=== PATIENT | female | born 1950 | race Two or more races ===

== ENCOUNTER 2018-03-20 12:25 | Inpatient (IN) | payer MEDICARE, OTHER ==
[~2018-03-20] VITALS: Ht 152.4 cm; Wt 56.7 kg
--- NOTE | 2018-03-20 12:35 | NUR ---
GPS: NURSING: ADMISSION NOTES: RECEIVED PATIENT FROM ER VIA [facility] WITH 5150 HOLD FOR GD, PATIENT AMBULATORY AND SPEAKS FARSI, PATIENT IS CONFUSED AND UNABLE TO ANSWER QUESTION DUE TO CONFUSION AND DISORIENTATION. NO SOB NOTED , NO C/O PAIN OR DISCOMFORT NOTED AT THIS TIME. PATIENT PACING AROUND THE HALLWAY AND ABLE TO REDIRECT THE PATIENT TO HER ROOM. WILL CONTINUE TO MONITOR.
[2018-03-20] MEDS ORDERED: RISP1TAB7 PO (12:36)
[2018-03-20 13:25] LABS: BASOPHILS % (AUTO) 0.4 % (0.0-2.0); EOSINOPHILS % (AUTO) 0.8 % (0.0-7.0); HEMATOCRIT 39.2 % (31.2-41.9); HEMOGLOBIN 13.2 g/dL (10.9-14.3); LYMPHOCYTES # (AUTO) 1.3 K/uL (20.0-40.0); LYMPHOCYTES % (AUTO) 24.4 % (20.5-51.5); MEAN CORPUSCULAR HEMOGLOBIN 31.5 uug (24.7-32.8); MEAN CORPUSCULAR HGB CONC 34 g/dL (32.3-35.6); MEAN CORPUSCULAR VOLUME 93.4 fL (75.5-95.3); MONOCYTES # (AUTO) 0.7 K/uL (2.0-10.0); MONOCYTES % (AUTO) 12.3 % (0.0-11.0); NEUTROPHILS # (AUTO) 3.3 K/uL (1.8-8.9); NEUTROPHILS % (AUTO) 62.1 % (38.5-71.5); PLATELET COUNT (AUTO) 191 K/uL (179-408); WHITE BLOOD COUNT (AUTO) 5.3 K/uL (3.8-11.8)
[2018-03-20 13:32] LABS: CARBON DIOXIDE 28 mmol/L (21-32); CHLORIDE 108 mmol/L (98-107); CREATININE 0.8 mg/dL (0.6-1.3); GLUCOSE 108 mg/dL (74-106); POTASSIUM 3.6 mmol/L (3.5-5.1); UREA NITROGEN, BLOOD 7 mg/dL (7-18)
[2018-03-20 13:37] LABS: ETHANOL < 3 MG/DL (0-0)
[2018-03-20 13:38] LABS: ACETAMINOPHEN < 2.0 ug/mL (10-30); ALANINE AMINOTRANSFERASE 35 U/L (14-59); ALKALINE PHOSPHATASE 114 U/L (50-136); ASPARTATE AMINOTRANSFERASE 31 U/L (15-37); BILIRUBIN,DIRECT 0.1 mg/dL (0.0-0.2); BILIRUBIN,TOTAL 0.3 mg/dL (0.2-1.0); TOTAL PROTEIN, SERUM 7.9 g/dL (6.4-8.2)
[2018-03-20 13:46] LABS: THYROID STIMULATING HORMONE 1.402 mIU/mL (0.358-3.740)
[2018-03-20 13:47] LABS: *BILIRUBIN,URIN NEGATIVE (NEGATIVE); *BLOOD, URINE NEGATIVE (NEGATIVE); *CLARITY,URINE CLEAR (CLEAR); *COLOR,URINE YELLOW (YELLOW); *KETONES,URINE NEGATIVE (NEGATIVE); *UROBILINOGEN,URINE 0.2 E.U./dl (NORMAL); LEUKOCYTE ESTERASE ,URINE NEGATIVE (NEGATIVE); NITRITE, URINE NEGATIVE (NEGATIVE); UGLUCOSE NEGATIVE (NEGATIVE)
[2018-03-20 13:51] LABS: BACTERIA,URINE FEW /HPF (NONE SEEN); RBC,URINE NONE SEEN /HPF (0-3); SQUAMOUS EPITHELIAL CELL,UR FEW /HPF (NONE SEEN); WBC,URINE NONE SEEN /HPF (0-3)
[2018-03-20 13:57] LABS: *AMPHETAMINE, URINE NEGATIVE (NEGATIVE); *BARBITURATE, URINE NEGATIVE (NEGATIVE); *CANNABINOID, URINE NEGATIVE (NEGATIVE); *COCCAINE, URINE NEGATIVE (NEGATIVE); *OPIATE, URINE NEGATIVE (NEGATIVE); *PHENCYCLIDINE SCREEN,URINE NEGATIVE (NEGATIVE)
[2018-03-20] MEDS ORDERED: LORAZEPAM 2 MG/1 ML VIAL ONE (13:57)
--- NOTE | 2018-03-20 13:59 | NUR ---
pt agitatd and escalating inspite of comfort measures and reorientation. pt responding to internal stimuli, all of a sudde started to yell followed by sobbing. pt hypertalking that does not make sense. pt talking in farsi.
[2018-03-20] MEDS ORDERED: LORAZEPAM 2 MG/1 ML VIAL IM ONE (14:00)
--- NOTE | 2018-03-20 14:49 | NUR ---
Pt. admitted to GPS, under care of Dr. MACK Belongs List completed
[2018-03-20 16:40] VITALS: BP 147/55
[2018-03-20 20:58] VITALS: BP 137/54
[2018-03-20] MEDS ORDERED: ACETAMINOPHEN 650 MG SUPP.RECT RC PRN (21:00)
[2018-03-20] MEDS ORDERED: LORAZEPAM 0.5 MG TABLET PO PRN (21:00)
[2018-03-20] MEDS ORDERED: TEMAZEPAM 7.5 MG CAPSULE PO PRN (21:00)
[2018-03-21 07:30] VITALS: BP 144/46
[2018-03-21] MEDS ORDERED: HALOPERIDOL LACTATE 5 MG/1 ML VIAL IM ONE (07:30)
[2018-03-21] MEDS ORDERED: LORAZEPAM 2 MG/1 ML VIAL IM ONE (07:30)
--- NOTE | 2018-03-21 12:30 | NUR ---
Initial Discharge Plan: Patient is a 67 year old female who currently lives in an apartment [[address] [place] [address] [address]; [place] [address]]and has [facility] caregivers [[facility] Adelita ; Sandhya Moreno ] come Saturday thru Saturday from 9:00am to 5:00pm. Patient states she would like to return to her apartment when ready. mop worker unable to speak with patient son, Roger Garcia [[phone]], at this time and will continue effort to try and reach him. mop worker has left voicemail with patient caregiver, [facility], and is awaiting call back. mop worker will continue to collaborate with patient, caregivers, patient son, and MD on a safe and proper discharge.
[2018-03-21 15:35] VITALS: BP 131/46
[2018-03-21 20:38] VITALS: BP 113/46
[2018-03-22] MEDS: risperiDONE 1 MG TABLET PO SCH ×4 (02:40→20:56)
[2018-03-22 07:30] VITALS: BP 132/53
[2018-03-22] MEDS: CARBAMAZEPINE 200 MG TABLET PO SCH ×3 (08:35→21:00)
[2018-03-22 16:00] VITALS: BP 123/55
--- NOTE | 2018-03-22 19:55 | NUR ---
RECEIVED PATIENT IN HER ROOM IN BED. SHE IS NOTED AWAKE A/O X 3 ABLE TO AMBULATE WITH STEADY GAIT AND ABLE TO MAKE HER NEEDS KNOWN. PATIENT NOTED WITH LOW MOOD, BLUNTED AFFECT, GUARDED. HOWEVER, SHE DENIED SI/HI/VH/AH. WISHING TO GO HOME SOON. V/S STABLE AT THIS TIME. PATIENT WAS REASSURED FOR HER SAFETY. WILL CONTINUE TO MONITOR.
[2018-03-22 20:03] VITALS: BP 121/50
--- NOTE | 2018-03-22 22:00 | NUR ---
PATIENT REFUSED TEGRETOL QHS. SHE STATED THAT TEGRETOL MAKES HER SICK. HOWEVER, SHE TOOK HER RISPERDAL 2MG PO QHS. SHE WAS EXPLAINED THE BENEFITS VS SIDE EFFECTS OF TEGRETOL BUT CONTINUE REFUSING. PATIENT WAS REASSURED FOR HER SAFETY.
[2018-03-23 08:05] VITALS: BP 144/53
[2018-03-23] MEDS: CARBAMAZEPINE 200 MG TABLET PO SCH ×2 (09:00→21:00)
[2018-03-23] MEDS: risperiDONE 1 MG TABLET PO SCH ×2 (09:23→21:00)
[2018-03-23 10:06] LABS: HEPATITIS A AB, IgM Negative (Negative)
[2018-03-23] MEDS ORDERED: BENZTROPINE MESYLATE 0.5 MG TABLET PO PRN (13:00)
[2018-03-23 16:51] VITALS: BP 158/47
[2018-03-23 20:37] VITALS: BP 137/49
[2018-03-24 07:30] VITALS: BP 132/56
[2018-03-24] MEDS: CARBAMAZEPINE 200 MG TABLET PO SCH ×2 (08:42→20:04)
[2018-03-24] MEDS: risperiDONE 1 MG TABLET PO SCH ×2 (08:42→20:03)
--- NOTE | 2018-03-24 11:34 | NUR ---
Firearms Report: SOURAV completed and submitted [employer] Firearms Report for 5250 GD certification.
[2018-03-24 16:00] VITALS: BP 113/50
--- NOTE | 2018-03-24 16:41 | NUR ---
GROUP NOTE: GOAL Patient will actively participate in the group discussion of the day or listen respectfully to other peers responses. INTERVENTION Social Work Coal Loader invited patient to participate in a group discussion held from 2:00-2:45 pm in the activities room. Social Work Coal Loader facilitated a group discussion regarding the types of love languages and ways in which they demonstrate their care for others. SW Coal Loader redirected pt. when needed, but at times was unsuccessful. RESPONSE Patient was open to participating in group discussion. Patient was able to share what others would say about her best characteristic. She stated that she shows others she cares by making sacrifices. The pt.s mood was happy with full range affect. The pt. interrupted her peers with comments that were unrelated to the discussion, however was cooperative. PLAN Patient will be invited to attend the next group discussion.
[2018-03-24 20:36] VITALS: BP 137/49
[2018-03-25 07:30] VITALS: BP 138/69
[2018-03-25] MEDS: CARBAMAZEPINE 200 MG TABLET PO SCH ×2 (09:55→20:33)
[2018-03-25] MEDS: risperiDONE 1 MG TABLET PO SCH ×2 (09:55→20:33)
[2018-03-25 16:55] VITALS: BP 122/54
[2018-03-25 20:00] VITALS: BP 109/40
[2018-03-26 07:30] VITALS: BP 139/41
[2018-03-26] MEDS: risperiDONE 1 MG TABLET PO SCH ×2 (08:48→20:51)
[2018-03-26] MEDS: CARBAMAZEPINE 200 MG TABLET PO SCH ×2 (08:48→20:51)
--- NOTE | 2018-03-26 14:31 | NUR ---
Lining Scrubber Discharge Planning Note: SW placed call to patient's Therapist, Radha Chicas ([phone]) to discuss pt prognosis and discharge planning. Per Radha, she sees the patient on a weekly basis and that the patient "goes through a pattern" approximately every other month of refusing to take her medications and is then hospitalized. Per Radha, the patient was just assigned a new Psychiatrist, Dr. Marquise Villegas [[address] [facility], [address] [place] [address]; ] who will be managing the patient's medications. Radha asked that Continuation of Care packet be faxed to his office when the patient is discharged. SOURAV will continue to follow-up to ensure a safe and proper discharge.
[2018-03-26] MEDS: MAG HYDROX/AL HYDROX/SIMETH 30 ML LIQUID UDC PO PRN (14:34)
--- NOTE | 2018-03-26 15:53 | NUR ---
PROCESS GROUP NOTE: Patients were asked to discuss their thoughts on what knowledge or "life lessons" they would pass on to a younger generation. Subjective: "Leave everything to the Lord" Objective: Patient sat in group calmly and was actively participating. Patient made good eye contact with peers. Assessment: supervisor park workers would re-direct patient frequently as patient got off topic easily. Patient compliant with redirection. Plan: supervisor park workers will continue to encourage group attendance as scheduled. supervisor park workers will continue to provide encouragement and support during MHU admission
[2018-03-26 16:00] VITALS: BP 149/59
--- NOTE | 2018-03-26 16:55 | NUR ---
received patient awake in bed AOx3, self care ambulatory, patient able to make her needs known, denies any pain and discomfort compliant to medication, patient denies of any delusion continue to monitor
[2018-03-26 20:02] VITALS: BP 156/57
[2018-03-26] MEDS: ONDANSETRON HCL 4 MG TABLET PO PRN (20:51)
--- NOTE | 2018-03-26 20:55 | NUR ---
RECEIVED PATIENT IN HER ROOM IN BED. SHE IS NOTED AWAKE A/O 2. SHE IS ABLE TO AMBULATE WITH STEADY GAIT AND ABLE TO MAKE HER NEEDS KNOWN. PATIENT CONTINUE NEEDY GUARDED, MANIPULATIVE AND INTRUSIVE. POOR INSIGHT AND JUDGMENT NOTED TO THE REASON FOR HIS ADMISSION TO MHU. SHE ALSO STATED THAT SHE HAS BEEN FEELING NAUSEA AND SHE ALSO STATED THAT SHE REFUSED LUNCH AND DINNER. V/S NOTED STABLE. SPRING LAGUERRE. ACNP WAS NOTIFY AND NEW ORDER WAS OBTAINED TO ADMINISTER ZOFRAN 4MG PO Q6HPRN FOR NAUSEA AND VOMITING. ORDER NOTED AND CARRIED OUT. PATIENT CONTINUE COMPLIANT WITH MEDICATION REGIMENT. SAFETY WAS EMPHASIS. WILL CONTINUE TO MONITOR CLOSELY.
--- NOTE | 2018-03-26 22:00 | NUR ---
PATIENT DENIES NAUSEA AND EMESIS. SHE IS NOTED RESTING COMFORTABLY IN HER IN IN BED. HOB IS ELEVATED, SHE WAS REASSURED FOR HER SAFETY, WILL CONTINUE TO MONITOR.
--- NOTE | 2018-03-27 02:56 | NUR ---
AT APPROX 0243 A NOISE WAS HEARD COMING FROM ROOM 145. THIS RN CIRCULATING IMMEDIATELY MADE HER WAY INTO ROOM 145 AND SAW THIS PATIENT ON THE FLOOR NEXT TO HER BED BY THE HEADBOARD. SHE WAS HELPED BACK TO HER BED THEN TO THE BATHROOM WHERE SHE VOIDED. UPON INTERVIEW PATIENT STATED THAT SHE WAS LOOKING FOR HER SOCKS WHEN SHE FELL BACKWARDS HITTING THE BACK OF HER HEAD AGAINST THE WALL. PATIENT DENIES HITTING ANY OTHER PARTS OF HER BODY. UPON BODY ASSESSMENT, NO REDNESS, NO BRUISING, NO SWELLING, NO BLEEDING WAS NOTED ON HER SCALP AND FACE. NO OTHER VISIBLE INJURES WERE APPRECIATED AT THIS TIME. PATIENT ABLE TO PERFORMED FULL ROM ON ALL FOUR EXTREMITIES. NO CHANGES IN LOC. PATIENT REMAINS A/O X 3. V/S SUPINE: B/P 107/52MMHG, PULSE 87BPM SPO2 97% PULSE 18 BREATHS/MIN. SHE STATED THAT, "THE BACK OF MY HEAD IS SORE, BRING ME A BAG OF ICE". SHE REFUSED ORTHOSTATIC V/S AND REFUSED TO HAVE HER TEMPERATURE TAKEN. MD PHARMACY OPERATIONS SPECIALIST WAS PAGED AT APPROX 0248. AWAITING FOR A CALL BACK. PROOFER WAS NOTIFY OF PATIENT'S FALL. WILL CONTINUE TO MONITOR AND NEURO CHECKS.
--- NOTE | 2018-03-27 03:50 | NUR ---
V/S 126/61MMHG. PULSE 80. PATIENT CONTINUE A/O X 3 WITH NO CHANGES IN LOC. WILL CONTINUE TO MONITOR
--- NOTE | 2018-03-27 04:35 | NUR ---
AT APPROX 0345, RECEIVED A CALL BACK FROM BHUPINDER HANKS CNP RE: FALL. OBTAINED A TELEPHONE ORDER TO DO A CT SCAN OF THE HEAD WITHOUT CONTRAST AND ICE PRN. ORDER WAS NOTED AND CARRIED OUT. PT LEFT THE UNIT WITH CIRILO ROLON AT APPROX [address] SCAN AND SHE IS NOW BACK INTO THE UNIT. PATIENT CONTINUE A/O X 3 WITH NO CHANGES IN LOC. WILL CONTINUE TO MONITOR.
[2018-03-27 05:36] VITALS: BP 122/50
--- NOTE | 2018-03-27 06:12 | NUR ---
RECEIVED RESULTS OF CT SCAN OF THE BRAIN WITHOUT CONTRAST: IMPRESSION: 1. Mild generalized cerebral volume loss and nonspecific chronic microvascular ischemic disease. 2. No evidence of intracranial masses hemorrhages or midline shift. PATIENT AWAKE A/O X 2 NO CHANGES IN LOC. V/S STABLE. DENIES PAIN. DR MACK WAS PAGED. AWAITING A CALL BACK. WILL CONTINUE TO MONITOR.
--- NOTE | 2018-03-27 07:01 | NUR ---
ATTEMPTED TO NOTIFY PATIENT JODI WALLACE AT [phone], OTHER PHONE NUMBERS WERE PROVIDED; HOWEVER, NO ANSWER ON ANY OF THE ONES LISTED IN HER ADMISSION PAPERS . WILL TRY LATER THIS MORNING.
[2018-03-27 07:30] VITALS: BP 121/41
[2018-03-27] MEDS: risperiDONE 1 MG TABLET PO SCH ×2 (08:11→20:39)
[2018-03-27] MEDS: CARBAMAZEPINE 200 MG TABLET PO SCH ×2 (08:11→20:39)
[2018-03-27] MEDS: ONDANSETRON HCL 4 MG TABLET PO PRN (08:11)
--- NOTE | 2018-03-27 15:00 | NUR ---
Gps/Pole Maker- Patient's son Radha called, wants to talk to Psychiatrist, requesting not to give anymore mediciations that making her Mon(Patient) more confused, and gets dizzy. Son was to be called at . Infomred results of head CT was neg. Sitter remains with patient, safety reviewed and continue to emphasized.
[2018-03-27 16:00] VITALS: BP 122/53
[2018-03-27] MEDS: MAGNESIUM HYDROXIDE 30 ML LIQUID UDC PO PRN (16:52)
--- NOTE | 2018-03-27 17:48 | NUR ---
Gps/Supervisor Dairy Sanitation- Less nausea, encouraged to eat, adequate fluid intake, per RN CLINICAL QUALITY patient moved her bowels on 03/24/18, abdomen soft, passing out gas . Prune juice offered, MOM 30 ml given .Had been cooperative with staff, safety continued to emphasized.
[2018-03-27 20:00] VITALS: BP 123/54
[2018-03-27] MEDS: MAG HYDROX/AL HYDROX/SIMETH 30 ML LIQUID UDC PO PRN (20:40)
--- NOTE | 2018-03-27 21:15 | NUR ---
GPS: patient stated i am not feeling well and my mouth is dry . V/S TAKEN. B/P 141/52 PULSE 70,RESP 20 SAT 95%, TEMP 97.5. cold water given. charge nurse made aware. continue monitoring for safety and pain.
[2018-03-27 21:25] VITALS: BP 141/52
--- NOTE | 2018-03-28 06:00 | NUR ---
GPS: REMAIN CALM AND COOPERATIVE WITH MEDICATIONS AND CARE. SLEPT 7 HRS THROUGH THE NIGHT. TOOK SHOWERED THIS MORNING. KEPT SAFE THROUGH THE NIGHT. 1:1 SITTER @ BEDSIDE FOR SAFETY.NO C/O PAIN OR ANY DISCOMFORT AT THIS TIME.
[2018-03-28 07:41] LABS: BASOPHILS % (AUTO) 0.3 % (0.0-2.0); EOSINOPHILS % (AUTO) 0.9 % (0.0-7.0); HEMATOCRIT 38.3 % (31.2-41.9); HEMOGLOBIN 12.7 g/dL (10.9-14.3); LYMPHOCYTES # (AUTO) 1.4 K/uL (20.0-40.0); LYMPHOCYTES % (AUTO) 33.4 % (20.5-51.5); MEAN CORPUSCULAR HEMOGLOBIN 31.1 uug (24.7-32.8); MEAN CORPUSCULAR HGB CONC 33 g/dL (32.3-35.6); MEAN CORPUSCULAR VOLUME 93.4 fL (75.5-95.3); MONOCYTES # (AUTO) 0.5 K/uL (2.0-10.0); MONOCYTES % (AUTO) 12.9 % (0.0-11.0); NEUTROPHILS # (AUTO) 2.2 K/uL (1.8-8.9); NEUTROPHILS % (AUTO) 52.5 % (38.5-71.5); PLATELET COUNT (AUTO) 164 K/uL (179-408); WHITE BLOOD COUNT (AUTO) 4.1 K/uL (3.8-11.8)
[2018-03-28 07:53] LABS: CREATININE 0.7 mg/dL (0.6-1.3); POTASSIUM 3.9 mmol/L (3.5-5.1)
[2018-03-28 08:00] VITALS: BP 119/41
[2018-03-28] MEDS ORDERED: ACETAMINOPHEN 325 MG TABLET PO PRN (08:30)
[2018-03-28] MEDS: risperiDONE 1 MG TABLET PO SCH ×2 (08:37→20:04)
[2018-03-28] MEDS: CARBAMAZEPINE 200 MG TABLET PO SCH ×2 (08:37→20:04)
--- NOTE | 2018-03-28 11:09 | NUR ---
National Sales Director Discharge Planning: SW called and spoke to pt's [facility] Caregiver, Sandhya ([phone]) to discuss patient prognosis and discharge planning. SW provided opportunity for caregiver to express concern and ventilate feelings. SW confirmed with Sandhya that pt will be able to return home upon discharge, and he was agreeable. Per Sandhya, he will be able to provide transportation for the patient when she is ready for discharge. SW will continue to follow-up to ensure a safe and proper discharge.
[2018-03-28 16:00] VITALS: BP 137/61
[2018-03-28] MEDS: FERROUS SULFATE 325 MG TABEC PO SCH (19:37)
[2018-03-28 20:00] VITALS: BP 137/53
[2018-03-28] MEDS: MAGNESIUM OXIDE 400 MG TABLET PO SCH (20:04)
[2018-03-28] MEDS ORDERED: GABAPENTIN 100 MG CAPSULE PO ONE (22:00)
--- NOTE | 2018-03-29 06:15 | NUR ---
GPS: REMAIN CALM AND COOPERATIVE WITH MEDICATIONS AND CARE. SLEPT 4 HRS THROUGH THE NIGHT. KEPT SAFE THROUGH THE NIGHT. 1:1 SITTER @ BEDSIDE FOR SAFETY. NO C/O PAIN OR ANY DISCOMFORT AT THIS TIME. CONTINUE PLAN OF CARE.
[2018-03-29 07:54] VITALS: BP 130/47
[2018-03-29] MEDS: risperiDONE 1 MG TABLET PO SCH ×2 (08:02→20:50)
[2018-03-29] MEDS: CARBAMAZEPINE 200 MG TABLET PO SCH ×2 (08:02→20:50)
[2018-03-29] MEDS: GABAPENTIN 100 MG CAPSULE PO SCH ×3 (08:02→16:45)
[2018-03-29] MEDS: FERROUS SULFATE 325 MG TABEC PO SCH (08:02)
[2018-03-29 16:49] VITALS: BP 112/50
[2018-03-29] MEDS: MAGNESIUM OXIDE 400 MG TABLET PO SCH (20:48)
[2018-03-29] MEDS: MAGNESIUM HYDROXIDE 30 ML LIQUID UDC PO PRN (21:03)
[2018-03-29] MEDS: MAG HYDROX/AL HYDROX/SIMETH 30 ML LIQUID UDC PO PRN (21:03)
[2018-03-29 22:11] VITALS: BP 139/53
[2018-03-30 08:31] VITALS: BP 102/42
[2018-03-30] MEDS: FERROUS SULFATE 325 MG TABEC PO SCH (08:39)
[2018-03-30] MEDS: CARBAMAZEPINE 200 MG TABLET PO SCH ×2 (08:39→20:07)
[2018-03-30] MEDS: GABAPENTIN 100 MG CAPSULE PO SCH ×3 (08:39→17:02)
[2018-03-30] MEDS: risperiDONE 1 MG TABLET PO SCH ×2 (08:40→20:07)
[2018-03-30 15:15] VITALS: BP 136/50
[2018-03-30 20:07] VITALS: BP 129/50
[2018-03-30] MEDS: MAGNESIUM OXIDE 400 MG TABLET PO SCH (20:07)
[2018-03-31 07:30] VITALS: BP 163/41
[2018-03-31] MEDS: risperiDONE 1 MG TABLET PO SCH ×2 (08:22→20:10)
[2018-03-31] MEDS: FERROUS SULFATE 325 MG TABEC PO SCH (08:23)
[2018-03-31] MEDS: CARBAMAZEPINE 200 MG TABLET PO SCH ×2 (08:23→20:11)
[2018-03-31] MEDS: GABAPENTIN 100 MG CAPSULE PO SCH ×3 (08:23→16:06)
[2018-03-31 15:27] VITALS: BP 118/53
--- NOTE | 2018-03-31 16:58 | NUR ---
GROUP NOTE: GOAL Patient will participate in the group discussion of the day or actively listen to other peers responses. INTERVENTION Social Work Pharmacy Picking Tech invited patient to participate in a group discussion held from 2:00-2:45 pm in the activities room. Social Work Pharmacy Picking Tech facilitated a group discussion regarding patients proudest moments and support systems that helped them accomplish those moments. SW redirected pt. when needed. RESPONSE Patient was receptive to participating in todays group discussion. Patient was pleasant and cooperated throughout group discussion. Patient stated that she is most proud of her Son, who is a professional and has good anju. Patient also expressed that she has felt the support from her congregation family throughout a life cycle transition. Patient interacted with her peer and remained respectful throughout activity. Patient was easily redirected. PLAN Patient will be invited to attend the next group discussion.
--- NOTE | 2018-03-31 18:03 | NUR ---
Patient is alert and oriented x2. Patient was visited by family today during lunch time.Patient is confused and needs repeated orientation. Patient is need and is attention seeking. Patient is able to verbalize needs and needs have been met. Patient agreed to take a bath today and was assisted by the SURVIVAL EQUIPMENT REPAIRER. Patient is compliant with medical treatment and medication administration. Will continue to monitor closely and endorse plan of care to fast food shift supervisor nurse.
[2018-03-31] MEDS: MAGNESIUM OXIDE 400 MG TABLET PO SCH (20:10)
[2018-03-31 22:38] VITALS: BP 119/64
--- NOTE | 2018-03-31 22:41 | NUR ---
Pt requested Restoril for sleep, and when it was brought to her, Pt became argumentative and stated, "I need 2 pills!" It was explained to her that the doctor prescribed 1 seeping pill for her at night, not 2. Pt was unwilling to take just the one pill, and medication was held. payroll manager aware, medication to be wasted.
[2018-04-01 08:14] VITALS: BP 124/49
[2018-04-01] MEDS: FERROUS SULFATE 325 MG TABEC PO SCH (08:31)
[2018-04-01] MEDS: GABAPENTIN 100 MG CAPSULE PO SCH ×3 (08:32→17:24)
[2018-04-01] MEDS: CARBAMAZEPINE 200 MG TABLET PO SCH ×2 (08:32→20:05)
[2018-04-01] MEDS: risperiDONE 1 MG TABLET PO SCH ×2 (08:32→20:05)
[2018-04-01 15:34] VITALS: BP 127/50
[2018-04-01 20:00] VITALS: BP 113/40
[2018-04-01] MEDS: MAGNESIUM OXIDE 400 MG TABLET PO SCH (20:05)
[2018-04-01] MEDS: GABAPENTIN 300 MG CAPSULE PO SCH ×2 (20:05→20:23)
--- NOTE | 2018-04-01 20:30 | NUR ---
Rec'd pt in her room, sitting at edge of bed. A&O x2-3. No s/s of acute distress noted. Seen and examined by Dr. Wallace. Took all due PO meds except for Neurontin. Dr. Wallace had adjusted her Neurontin dosage from Neurontin 200mg PO TID to Neurontin 300mg PO QHS. Per pt, she already rec'd 400mg today and does not want anymore. Per pt she will start the Neurontin 300mg PO tomorrow night as scheduled. Charge nurse aware. Will follow up with MD. All safety precautions in place. Will continue to monitor.
--- NOTE | 2018-04-02 06:32 | NUR ---
Pt in bed aslee. Slept x7.30 hrs during shift. No s/s of acute distress noted. All safety precautions in place. No episode of responding to verbal stimuli during shift. Will endorse to oncoming shift.
[2018-04-02 07:30] VITALS: BP 106/37
[2018-04-02] MEDS: FERROUS SULFATE 325 MG TABEC PO SCH (09:00)
[2018-04-02] MEDS: risperiDONE 1 MG TABLET PO SCH ×2 (09:25→21:22)
[2018-04-02] MEDS: CARBAMAZEPINE 200 MG TABLET PO SCH ×2 (09:28→21:22)
[2018-04-02 16:00] VITALS: BP 137/51
[2018-04-02 20:41] VITALS: BP 128/50
[2018-04-02] MEDS: GABAPENTIN 300 MG CAPSULE PO SCH (21:22)
[2018-04-02] MEDS: MAGNESIUM OXIDE 400 MG TABLET PO SCH (21:22)
--- NOTE | 2018-04-03 03:25 | NUR ---
GPS/NSG Patient first observed awake on unit. Patient is alert and oriented to name, and place. Patient is confused and requires repeated orientation. Patient exhibits attention seeking behavior at times observed to be inappropriate. Patient is able to verbalize needs and needs have been met. Patient is compliant with medical treatment and medication administration. Will continue to monitor closely and follow plan of care.
[2018-04-03 07:30] VITALS: BP 118/44
[2018-04-03] MEDS: FERROUS SULFATE 325 MG TABEC PO SCH (08:33)
[2018-04-03] MEDS: CARBAMAZEPINE 200 MG TABLET PO SCH ×2 (08:33→20:48)
[2018-04-03] MEDS: risperiDONE 1 MG TABLET PO SCH ×2 (08:36→20:49)
--- NOTE | 2018-04-03 13:32 | NUR ---
Gps/Bleacher Sulfite Pulp- Caregiver, verbalized concerns regarding patient , claimed she is still confused, , verbalizing things that does not make sense, patient claimed " they draw blood from his roommate and put coke instead", reassure will discuss w/ SW. and report to Psychiatrist.
[2018-04-03] MEDS: MAG HYDROX/AL HYDROX/SIMETH 30 ML LIQUID UDC PO PRN (13:52)
[2018-04-03 16:00] VITALS: BP 127/40
--- NOTE | 2018-04-03 17:55 | NUR ---
Gps/Milk Driver- Waiting for Caregiver to visit to pm, per SW left message , and waiting for return call, to calrify time of molded goods spot picker , and to confirm that he will provide transportation.
[2018-04-03 20:13] VITALS: BP 113/52
[2018-04-03] MEDS: MAGNESIUM OXIDE 400 MG TABLET PO SCH (20:48)
[2018-04-03] MEDS: GABAPENTIN 300 MG CAPSULE PO SCH (20:48)
[2018-04-04 07:30] VITALS: BP 108/48
[2018-04-04] MEDS: risperiDONE 1 MG TABLET PO SCH (08:24)
[2018-04-04] MEDS: CARBAMAZEPINE 200 MG TABLET PO SCH (08:24)
[2018-04-04] MEDS: FERROUS SULFATE 325 MG TABEC PO SCH (08:24)
--- NOTE | 2018-04-04 12:44 | NUR ---
DC Note: Patient will be discharged back home with her caregiver [[address], [address] [place] [address]; [phone]] via private transportation. Spoke with patients caregiver, Sandhya Moreno ([phone]) who is aware and agreeable with discharge plan. Pt's caregiver, Tracy Ureña ([phone]) will be providing transportation for the patient. Patient is aware and agreeable with discharge plans. Patient will continue to follow-up with her Primary Care Physician Dr. [place]illas [[address] [facility] [address] [facility], [address] [place] [address]; [phone]]. Patient will continue to follow-up with her Psychiatrist, Dr. Marquise Villegas [[address] [place] [address], [phone], [place], [address]; ]. Patient will continue to follow-up with her Therapist, Radha Chicas ([phone]) on , April 10, 2018 @ 1pm in pts home. Patient was given outpatient mental health referrals to [facility] , [facility] , and the National Suicide Prevention Lifeline .
--- NOTE | 2018-04-04 14:06 | NUR ---
PT LEFT UNIT ON W/C ACCOMPANIED BY CIRILO AND ANTHONY, HER CAREGIVER TO PRIVATE VEHICLE. LEFT WITH ALL NOTED BELONGINGS AND PAPERWORK. PT STATES SHE HAS A WALLET, BUT NOTHING IS NOTED ON BELONGINGS SHEET. DENIES PAIN OR DISCOMFORT. ABLE TO VERBALIZE ALL NEEDS. V/S STABLE. IN NO ACUTE DISTRESS.
== END 2018-04-04 14:09 | disposition home or self-care (01) | DRG 885 ==
LOC: ER 12:25 → GPS 14:29
PROVIDERS: ADMIT Psychiatry & Neurology Psychiatry; ATTEND Nurse Practitioner Acute Care
DX: F25.9 Schizoaffective disorder, unspecified (principal); E87.0 Hyperosmolality and hypernatremia; I67.82 Cerebral ischemia; I11.9 Hypertensive heart disease without heart failure; E78.00 Pure hypercholesterolemia, unspecified; Z91.81 History of falling; Z98.890 Other specified postprocedural states
CPT/HCPCS: 36415; 70450; 71045; 71111; 80307; 84443; 85025; 85730; 86705; 86709; 86803; 87806; 93005; A4663; G0480; G0480-TC; J1630; J2060; Q0162

== ENCOUNTER 2018-06-23 18:54 | Inpatient (IN) | payer MEDICARE, OTHER ==
[~2018-06-23] VITALS: Ht 160 cm; Wt 58.1 kg
[2018-06-23] MEDS ORDERED: RISP1TAB27 PO (20:03)
[2018-06-23 20:45] VITALS: BP 147/53
[2018-06-23] MEDS ORDERED: ACETAMINOPHEN 325 MG TABLET PO PRN (20:45)
[2018-06-23] MEDS ORDERED: MAG HYDROX/AL HYDROX/SIMETH 30 ML LIQUID UDC PO PRN (20:45)
[2018-06-23] MEDS ORDERED: MAGNESIUM HYDROXIDE 30 ML LIQUID UDC PO PRN (20:45)
[2018-06-24 07:30] VITALS: BP 112/50
[2018-06-24] MEDS: LORAZEPAM 1 MG TABLET PO PRN (13:05)
[2018-06-24 15:25] VITALS: BP 124/44
[2018-06-24] MEDS: GABAPENTIN 100 MG CAPSULE PO SCH ×2 (18:18→20:58)
[2018-06-24 19:58] VITALS: BP 118/41
[2018-06-24] MEDS: BENZTROPINE MESYLATE 0.5 MG TABLET PO SCH (20:58)
[2018-06-24] MEDS: CARBAMAZEPINE 200 MG TABLET PO SCH (20:59)
[2018-06-24] MEDS: risperiDONE 2 MG TABLET PO SCH (21:05)
[2018-06-25 07:48] LABS: *BILIRUBIN,URIN NEGATIVE (NEGATIVE); *BLOOD, URINE NEGATIVE (NEGATIVE); *CLARITY,URINE CLEAR (CLEAR); *COLOR,URINE YELLOW (YELLOW); *KETONES,URINE NEGATIVE (NEGATIVE); *UROBILINOGEN,URINE 0.2 E.U./dl (NORMAL); LEUKOCYTE ESTERASE ,URINE NEGATIVE (NEGATIVE); NITRITE, URINE NEGATIVE (NEGATIVE); UGLUCOSE NEGATIVE (NEGATIVE)
[2018-06-25 08:07] VITALS: BP 123/52
[2018-06-25] MEDS: GABAPENTIN 100 MG CAPSULE PO SCH ×5 (08:47→20:07)
[2018-06-25] MEDS: CARBAMAZEPINE 200 MG TABLET PO SCH ×3 (08:47→16:31)
[2018-06-25] MEDS: risperiDONE 2 MG TABLET PO SCH ×2 (08:47→20:07)
[2018-06-25] MEDS: BENZTROPINE MESYLATE 0.5 MG TABLET PO SCH ×3 (08:47→20:07)
[2018-06-25 10:28] LABS: BACTERIA,URINE FEW /HPF (NONE SEEN); RBC,URINE NONE SEEN /HPF (0-3); SQUAMOUS EPITHELIAL CELL,UR FEW /HPF (NONE SEEN); WBC,URINE NONE SEEN /HPF (0-3)
[2018-06-25 15:17] VITALS: BP 134/55
[2018-06-25 20:52] VITALS: BP 135/50
[2018-06-25] MEDS: TEMAZEPAM 7.5 MG CAPSULE PO PRN (21:20)
[2018-06-25] MEDS: LORAZEPAM 1 MG TABLET PO PRN (22:49)
[2018-06-26 07:30] VITALS: BP 113/47
[2018-06-26] MEDS: risperiDONE 2 MG TABLET PO SCH ×2 (09:22→20:00)
[2018-06-26] MEDS: BENZTROPINE MESYLATE 0.5 MG TABLET PO SCH ×2 (09:22→20:00)
[2018-06-26] MEDS: GABAPENTIN 100 MG CAPSULE PO SCH (09:22)
[2018-06-26] MEDS: CARBAMAZEPINE 200 MG TABLET PO SCH ×2 (09:22→21:00)
[2018-06-26] MEDS ORDERED: GABAPENTIN 100 MG CAPSULE PO SCH (13:00)
[2018-06-26] MEDS: GABAPENTIN 300 MG CAPSULE PO SCH ×3 (13:09→20:00)
[2018-06-26 16:00] VITALS: BP 116/98
[2018-06-26 20:36] VITALS: BP 121/51
[2018-06-26] MEDS: TEMAZEPAM 7.5 MG CAPSULE PO PRN (21:47)
[2018-06-27 07:30] VITALS: BP 101/50
[2018-06-27] MEDS: BENZTROPINE MESYLATE 0.5 MG TABLET PO SCH ×2 (09:40→20:35)
[2018-06-27] MEDS: risperiDONE 2 MG TABLET PO SCH ×2 (09:40→20:35)
[2018-06-27] MEDS: CARBAMAZEPINE 200 MG TABLET PO SCH ×2 (09:40→20:35)
[2018-06-27] MEDS: GABAPENTIN 300 MG CAPSULE PO SCH ×4 (09:40→20:35)
[2018-06-27 16:00] VITALS: BP 118/47
[2018-06-27 20:26] VITALS: BP 111/54
[2018-06-28 07:30] VITALS: BP 103/46
[2018-06-28] MEDS: risperiDONE 2 MG TABLET PO SCH ×2 (08:53→22:10)
[2018-06-28] MEDS: CARBAMAZEPINE 200 MG TABLET PO SCH ×2 (08:53→21:00)
[2018-06-28] MEDS: BENZTROPINE MESYLATE 0.5 MG TABLET PO SCH ×2 (08:53→22:09)
[2018-06-28] MEDS: GABAPENTIN 300 MG CAPSULE PO SCH ×4 (08:53→22:10)
[2018-06-28 15:30] VITALS: BP 99/45
[2018-06-28 21:54] VITALS: BP 103/43
[2018-06-29 07:30] VITALS: BP_SYST 115; BP_SYST 97; BP_DIAS 52; BP_DIAS 58
[2018-06-29 07:50] LABS: BASOPHILS % (AUTO) 0.3 % (0.0-2.0); EOSINOPHILS # (AUTO) 0.2 K/uL (0.0-0.7); EOSINOPHILS % (AUTO) 3.7 % (0.0-7.0); HEMATOCRIT 34.4 % (31.2-41.9); HEMOGLOBIN 11.7 g/dL (10.9-14.3); LYMPHOCYTES % (AUTO) 21.8 % (20.5-51.5); MEAN CORPUSCULAR HGB CONC 34 g/dL (32.3-35.6); MEAN CORPUSCULAR VOLUME 94.3 fL (75.5-95.3); MONOCYTES # (AUTO) 0.6 K/uL (2.0-10.0); MONOCYTES % (AUTO) 13.9 % (0.0-11.0); NEUTROPHILS # (AUTO) 2.7 K/uL (1.8-8.9); NEUTROPHILS % (AUTO) 60.3 % (38.5-71.5); PLATELET COUNT (AUTO) 157 K/uL (179-408); RED BLOOD CELL COUNT(AUTO) 3.65 MIL/uL (3.63-4.92); WHITE BLOOD COUNT (AUTO) 4.5 K/uL (3.8-11.8)
[2018-06-29 08:19] LABS: THYROID STIMULATING HORMONE 1.051 mIU/mL (0.358-3.740)
[2018-06-29 08:21] LABS: CREATININE 0.8 mg/dL (0.6-1.3); MAGNESIUM 2.2 mg/dL (1.8-2.4); PHOSPHOROUS 3.9 mg/dL (2.5-4.9); POTASSIUM 4.6 mmol/L (3.5-5.1); TOTAL PROTEIN, SERUM 6.2 g/dL (6.4-8.2)
[2018-06-29 08:53] LABS: BILIRUBIN,TOTAL 0.3 mg/dL (0.2-1.0)
[2018-06-29] MEDS: CARBAMAZEPINE 200 MG TABLET PO SCH ×2 (08:53→20:17)
[2018-06-29] MEDS: GABAPENTIN 300 MG CAPSULE PO SCH ×4 (08:53→20:17)
[2018-06-29] MEDS: BENZTROPINE MESYLATE 0.5 MG TABLET PO SCH ×2 (08:53→20:16)
[2018-06-29] MEDS: risperiDONE 2 MG TABLET PO SCH ×2 (08:53→20:17)
[2018-06-29 16:00] VITALS: BP 132/68
[2018-06-29 20:17] VITALS: BP 132/42
[2018-06-30] MEDS: LORAZEPAM 1 MG TABLET PO PRN ×2 (02:40→08:12)
[2018-06-30 07:30] VITALS: BP 101/44
[2018-06-30] MEDS: BENZTROPINE MESYLATE 0.5 MG TABLET PO SCH ×2 (08:33→20:16)
[2018-06-30] MEDS: risperiDONE 2 MG TABLET PO SCH ×2 (08:33→20:15)
[2018-06-30] MEDS: CARBAMAZEPINE 200 MG TABLET PO SCH ×2 (08:33→20:17)
[2018-06-30] MEDS: GABAPENTIN 300 MG CAPSULE PO SCH ×4 (08:33→20:16)
[2018-06-30 16:01] VITALS: BP 115/59
[2018-06-30 20:00] VITALS: BP 120/49
[2018-07-01 07:30] VITALS: BP 108/50
[2018-07-01] MEDS: BENZTROPINE MESYLATE 0.5 MG TABLET PO SCH ×2 (09:00→21:08)
[2018-07-01] MEDS: GABAPENTIN 300 MG CAPSULE PO SCH ×3 (09:00→16:46)
[2018-07-01] MEDS: risperiDONE 2 MG TABLET PO SCH ×3 (09:00→21:08)
[2018-07-01] MEDS: CARBAMAZEPINE 200 MG TABLET PO SCH ×2 (09:00→21:08)
[2018-07-01 15:47] VITALS: BP 123/50
[2018-07-01 20:32] VITALS: BP 104/59
[2018-07-01] MEDS ORDERED: GABAPENTIN 300 MG CAPSULE PO SCH (21:00)
[2018-07-01 21:06] VITALS: BP 124/62
[2018-07-01] MEDS: GABAPENTIN 100 MG CAPSULE PO SCH (21:08)
[2018-07-02 07:30] VITALS: BP 129/46
[2018-07-02] MEDS: CARBAMAZEPINE 200 MG TABLET PO SCH (08:42)
[2018-07-02] MEDS: risperiDONE 2 MG TABLET PO SCH (08:42)
[2018-07-02] MEDS: BENZTROPINE MESYLATE 0.5 MG TABLET PO SCH (08:42)
[2018-07-02] MEDS: GABAPENTIN 100 MG CAPSULE PO SCH ×2 (08:42→12:31)
== END 2018-07-02 15:15 | disposition home or self-care (01) | DRG 885 ==
LOC: ER 18:56 → GPS 20:25
PROVIDERS: ADMIT Psychiatry & Neurology Psychiatry; ATTEND Internal Medicine
DX: F25.9 Schizoaffective disorder, unspecified (principal); E44.0 Moderate protein-calorie malnutrition; Z91.83 Wandering in diseases classified elsewhere; E78.5 Hyperlipidemia, unspecified; Z68.22 Body mass index [BMI] 22.0-22.9, adult; F09 Unspecified mental disorder due to known physiological condition; R60.1 Generalized edema; I11.9 Hypertensive heart disease without heart failure; G31.84 Mild cognitive impairment of uncertain or unknown etiology; R26.81 Unsteadiness on feet; D69.6 Thrombocytopenia, unspecified
CPT/HCPCS: 36415; 73130; 83735; 84100; 84443; 85025; 87086; A4663

== ENCOUNTER 2018-10-04 18:43 | Inpatient (IN) | payer MEDICARE, OTHER ==
[~2018-10-04] VITALS: Ht 157.5 cm; Wt 54.4 kg
[2018-10-14 07:56] VITALS: BP 147/59
== END 2018-10-14 11:00 | disposition home or self-care (01) | DRG 885 ==
LOC: ER 18:45 → GPS 20:04
PROVIDERS: ADMIT Psychiatry & Neurology Psychiatry; ATTEND Nurse Practitioner Acute Care
DX: F25.0 Schizoaffective disorder, bipolar type (principal); I11.9 Hypertensive heart disease without heart failure; E78.5 Hyperlipidemia, unspecified; Z87.891 Personal history of nicotine dependence; L84 Corns and callosities; I25.10 Atherosclerotic heart disease of native coronary artery without angina pectoris; K21.9 Gastro-esophageal reflux disease without esophagitis; G47.9 Sleep disorder, unspecified; F41.9 Anxiety disorder, unspecified; F09 Unspecified mental disorder due to known physiological condition; Z79.899 Other long term (current) drug therapy; F03.90 Unspecified dementia, unspecified severity, without behavioral disturbance, psychotic disturbance, mood disturbance, and anxiety
CPT/HCPCS: 36415; 71045; 93005; A4663